=== PATIENT | female | born 1990 | race Caucasian/White ===

== ENCOUNTER → 2017-08-09 | Outpatient (CLI) | payer MEDICAID ==
--- NOTE | 2017-08-09 16:40 | RADIOLOGY REPORT (SQ) ---
EXAM DESCRIPTION: U/S [id number] TRNABD 1GES W/ODOP COMPLETED DATE/TIME: 08/09/2017 4:24 pm REASON FOR STUDY: ENCOUNTER FOR SUPERVISION OF OTHER NORMAL , FIRST TRIMESTER Z34.81 ENCOU NTER FOR SUPRVSN OF NORMAL , FIRST TRIM COMPARISON: None. TECHNIQUE: Transabdominal static and realtime grayscale images acquired of the pelvis. Additional se lected spectral and color Doppler images recorded. All images stored on PACs. bHCG: Not available LIMITATIONS: None. FINDINGS: FETUS: Living intrauterine . EGA: 12 weeks 1 day by crown-rump length SHOAIB: 02/20/2018 FHR: 175 beats per minute. SUBCHORIONIC BLEED: No SIZE OF BLEED: Not applicable. UTERUS: No masses. No anomalies. Uterus is 11.5 x 9 x 9 cm in size CERVICAL LENGTH: 3 cm inlet Closed. RIGHT ADNEXA: Normal ovary with normal vascular flow. Right ovary 3.8 x 2.6 x 1.9 cm size No adnexal free fluid. No adnexal masses. LEFT ADNEXA: Normal ovary with normal vascular flow. Left ovary 2.7 x 1.6 x 1.6 cm in size No adnexal free fluid. No adnexal masses. FREE FLUID: None. OTHER: No other significant finding. IMPRESSION: LIVING INTRAUTERINE . EGA 12 weeks 1 day by crown-rump length Trimester of : First - 0 to 13 weeks. TECHNICAL DOCUMENTATION: JOB ID: [id number] [employer]- All Rights Reserved
== END ==
LOC: RAD 15:55
PROVIDERS: ATTEND Nurse Practitioner Women's Health
DX: Z34.81 Encounter for supervision of other normal pregnancy, first trimester (principal)
CPT/HCPCS: 76801

== ENCOUNTER → 2017-08-14 | Outpatient (CLI) | payer MEDICAID ==
[2017-08-14 14:47] LABS: ALANINE AMINOTRANSFERASE 21 U/L (9-52); ALBUMIN 3.7 g/dL (3.5-5.0); ALKALINE PHOSPHATASE 44 U/L (38-126); ANION GAP 10 (5-19); ASPARTATE AMINO TRANSFERASE 14 U/L (14-36); BILIRUBIN,DIRECT 0.2 mg/dL (0.0-0.4); BILIRUBIN,TOTAL 0.3 mg/dL (0.2-1.3); BLOOD UREA NITROGEN 10 mg/dL (7-20); CALCIUM 9.8 mg/dL (8.4-10.2); CARBON DIOXIDE 26 mmol/L (22-30); CHLORIDE 104 mmol/L (98-107); GLUCOSE 80 mg/dL (75-110); POTASSIUM 4.4 mmol/L (3.6-5.0); SODIUM 139.7 mmol/L (137-145); TOTAL PROTEIN 6.4 g/dL (6.3-8.2); URIC ACID 3.3 mg/dL (2.5-6.2)
[2017-08-15 19:11] LABS: URINE PROTEIN 6.5 mg/dL (<12)
[2017-08-15 19:16] LABS: 24 HOUR URINE PROTEIN RESULT 66 mg/day (42-225)
== END ==
LOC: OD 13:34
PROVIDERS: ATTEND Nurse Practitioner Women's Health
DX: Z34.81 Encounter for supervision of other normal pregnancy, first trimester (principal)
CPT/HCPCS: 36415; 80053; 83615; 84156; 84550

== ENCOUNTER 2017-12-18 19:43 | Observation (INO) | payer MEDICAID ==
[2017-12-18 20:42] LABS: APPEARANCE,URINE CLOUDY; BILIRUBIN,URINE SMALL (NEGATIVE); COLOR,URINE AMBER; GLUCOSE, URINE NEGATIVE (NEGATIVE); KETONES,URINE 80 mg/dL (NEGATIVE); LEUKOCYTE ESTERASE,URINE LARGE (NEGATIVE); NITRITE,URINE NEGATIVE (NEGATIVE); PROTEIN,URINE 100 mg/dL (NEGATIVE); URINE SPECIFIC GRAVITY 1.036
[2017-12-18 20:56] LABS: URINE AMPHETAMINES SCREEN NEGATIVE; URINE BARBITURATES SCREEN NEGATIVE; URINE BENZODIAZEPINES SCREEN NEGATIVE; URINE COCAINE SCREEN NEGATIVE; URINE MARIJUANA (THC) SCREEN NEGATIVE; URINE METHADONE SCREEN NEGATIVE; URINE PHENCYCLIDINE SCREEN NEGATIVE
[2017-12-18] MEDS ORDERED: ONDANSETRON HCL INJ/PF 4 MG/2 ML SDV IV ONE (21:10)
[2017-12-18] MEDS ORDERED: ONDANSETRON HCL INJ/PF 4 MG/2 ML SDV ONE (21:13)
[2017-12-18 21:49] LABS: HEMATOCRIT 39.5 % (36.0-47.0); HEMOGLOBIN 13.4 g/dL (12.0-15.5); MEAN CORPUSCULAR HEMOGLOBIN 31.2 pg (27.0-33.4); MEAN CORPUSCULAR HGB CONC 33.9 g/dL (32.0-36.0); MEAN CORPUSCULAR VOLUME 92 fl (80-97); PLATELET COUNT 162 10^3/uL (150-450); RED BLOOD COUNT 4.29 10^6/uL (3.72-5.28); RED CELL DISTRIBUTION WIDTH 13.6 % (11.5-14.0)
[2017-12-18] MEDS ORDERED: RINGERS SOLUTION,LACTATED 1,000 ML IV ONE (21:55)
[2017-12-18 22:00] LABS: ALANINE AMINOTRANSFERASE 31 U/L (9-52); ALBUMIN 3.2 g/dL (3.5-5.0); ALKALINE PHOSPHATASE 93 U/L (38-126); AMYLASE 32 U/L (30-110); ANION GAP 11 (5-19); ASPARTATE AMINO TRANSFERASE 18 U/L (14-36); BILIRUBIN,DIRECT 0.2 mg/dL (0.0-0.4); BILIRUBIN,TOTAL 0.5 mg/dL (0.2-1.3); BLOOD UREA NITROGEN 11 mg/dL (7-20); CALCIUM 8.9 mg/dL (8.4-10.2); CARBON DIOXIDE 23 mmol/L (22-30); CHLORIDE 105 mmol/L (98-107); GLUCOSE 86 mg/dL (75-110); LIPASE 68.4 U/L (23-300); POTASSIUM 4.2 mmol/L (3.6-5.0); SODIUM 138.9 mmol/L (137-145); TOTAL PROTEIN 5.9 g/dL (6.3-8.2)
[2017-12-18 22:08] LABS: AMNISURE (ROM) NEGATIVE (NEGATIVE)
[2017-12-18 22:09] LABS: ABSOLUTE LYMPHOCYTES# (MANUAL) 0.8 10^3/uL (0.5-4.7); ABSOLUTE MONOCYTES # (MANUAL) 0.8 10^3/uL (0.1-1.4); ABSOLUTE NEUTROPHILS# (MANUAL) 13.4 10^3/uL (1.7-8.2); BASOPHILS % (MANUAL) 0 % (0-2); EOSINOPHILS % (MANUAL) 1 % (0-6); LYMPHOCYTES % (MANUAL) 5 % (13-45); MONOCYTES % (MANUAL) 5 % (3-13); SEGMENTED NEUTROPHILS % (MAN) 89 % (42-78); TOTAL CELLS COUNTED 100
[2017-12-18 22:13] LABS: PLATELET COMMENT ADEQUATE; TOXIC GRANULATION SLIGHT
[2017-12-18 22:56] LABS: T.VAGINALIS (WET MOUNT) NO TRICHOMONAS SEEN
[2017-12-18 22:57] LABS: BACTERIA (WET MOUNT) 4+ BACTERIA SEEN; EPITHELIALS (WET MOUNT) 3+ EPITHELIALS SEEN; WBCS (WET MOUNT) 3+ WBCS SEEN; YEAST (WET MOUNT) YEAST SEEN
[2017-12-18 23:00] LABS: APPEARANCE,URINE SLIGHTLY-CLOUDY; BILIRUBIN,URINE NEGATIVE (NEGATIVE); COLOR,URINE YELLOW; GLUCOSE, URINE NEGATIVE (NEGATIVE); KETONES,URINE 80 mg/dL (NEGATIVE); LEUKOCYTE ESTERASE,URINE SMALL (NEGATIVE); NITRITE,URINE NEGATIVE (NEGATIVE); PROTEIN,URINE NEGATIVE (NEGATIVE); URINE SPECIFIC GRAVITY 1.028
[2017-12-18] MEDS ORDERED: BETAMET ACET/BETAMET NA INJ 6 MG/1 ML ONE (23:43)
[2017-12-18] MEDS ORDERED: ZOLPIDEM TARTRATE 5 MG TABLET PO PRN (23:43)
--- NOTE | 2017-12-18 23:51 | RADIOLOGY REPORT (SQ) ---
EXAM DESCRIPTION: US LIMITED CLINICAL HISTORY: 27 years Female, cervical length, presentation Comparison: None. TECHNIQUE: Targeted for request obstetric parameters. LIMITATIONS: None. FINDINGS: Cervical length: 1.2 cm. Closed appearance with up to 20% funneling of the internal os. Funneling measures 1.5 cm in length and 1.1 cm in width. position: Vertex. JACQUES: 11.5 cm. Anechoic. Cardiac activity: 145 bpm Placenta location: Anterior. No evidence of placenta previa. No abruption. IMPRESSION: Targeted for requested obstetric parameters.
[2017-12-18] MEDS: RINGERS SOLUTION,LACTATED 1,000 ML IV PRN ×2 (23:55→23:56)
[2017-12-19 00:23] LABS: CHLAM PCR NOT DETECTED (NOT DETECT); GON PCR NOT DETECTED (NOT DETECT)
[2017-12-19] MEDS: RINGERS SOLUTION,LACTATED 1,000 ML IV PRN ×2 (03:20→11:46)
--- NOTE | 2017-12-19 04:48 | Admission Physical ---
Datetime Report Generated by CPN: 12/19/2017 04:48 CURRENT ADMISSION Chief Complaint: Other Chief Complaint Other: Labor check for n/v and suspected GI bug complaint of back pain and vague abd pain. Shortened cervical length Admit Impression : , Intrauterine ; No Active Labor; Intact Membranes; Observation/Evaluation Admit Plan: Admit to Unit; Observation/Evaluation ALLERGIES Medication Allergies: No Medication Allergies: No Known Allergies (12/18/2017) Latex: No Latex Allergies OBSTETRICAL HISTORY EDC: 02/20/2018 00:00 : 2 Para: 1 Term: 1 : 0 SAB: 0 IAB: 0 Ectopic: 0 Livin Cesareans: 0 VBACs: 0 Multiple Births: 0 Gestational Diabetes: No Rh Sensitization: No Incompetent Cervix: No DANNIE: No Infertility: No ART Treatment: No Uterine Anomaly: No IUGR: No Hx Previous C/S: No Macrosomia: No Hx Loss/Stillborn: No PIH: No Hx : No Placenta Previa/Abruption: No Depression/PP Depression: No PTL/PROM: No Post Hemorrhage: No Current Procedures: Ultrasound; NST Obstetrical History Comments: G1-11/02/10 @ 40wks Male 8lbs 6oz (Pre-eclampsia) G2- Current SEE RECORDS Alcohol: No Marijuana : No Cocaine: No Other Illicit Drugs: No Cigarettes: Former Smoker. [id number] MEDICAL HISTORY Diabetes: No Blood Transfusion: No Pulmonary Disease (Asthma, TB): No Breast Disease: No Hypertension: No Orthopedic Radiologic Technologist Surgery: No Heart Disease: No Hosp/Surgery: Yes Autoimmune Disorder: No Anesthetic Complications: No Kidney Disease: No Abnormal Pap Smear: No Neuro/Epilepsy: No Psychiatric Disorders: No Other Medical Diseases: Yes Hepatitis/Liver Disease: No Significant Family History: No Varicosities/Phlebitis: No Trauma/Violence : No Thyroid Dysfunction: No Medical History Comments: 2011-Childbirth; Has umbilical hernia; INFECTIOUS HISTORY Gonorrhea: No Genital Herpes: No Chlamydia: No Tuberculosis: No Syphilis: No Hepatitis: No HIV/AIDS Exposure: No Rash or Viral Illness: No HPV: Yes Infectious History Comments: Genital warts tx during @ [facility]; PHYSICAL EXAM General: Normal HEENT: Normal Neurologic: Normal Thyroid: Deferred Heart: Normal Lungs: Normal Breast: Deferred Back: Normal Abdomen: Normal Genitourinary Exam: Normal Extremities: Normal DTRs: Normal Pelvic Type: Adequate Vital Signs: Reviewed VAGINAL EXAM Contraction Comments: rare MEMBRANES Membranes: Intact FETUS A EGA: 31.0 Monitoring: External US FHR- Baseline: 150 Variability: Moderate 6-25bpm Accelerations: 15X15 Decelerations: None FHR Category: Category I Presentation: Vertex Admit Comment: 27yo at 31+0ega admitted just prior to midnight last evening for observation due to shortened cervical length. Patient reports that now she is feeling better n/v has resolved and back pain (low mid back pain) has improved slightly. Cervical length done in the office yesterday due to c/o ctx day prior (12/16) and cervical length on 12/17 was 3.67cm. Prior delivery was at 40wks. GBS unknown. Will give steroids. Unable to do fFN last night due to prior exam on Sunday. Cervix now 1.2cm shortened with funneling but closed. Pt resting comfortably. Will give prometrium/zantac/monsitat at discharge. c/b genital warts and h/o preE in prior preg/Varicella NI. If patient begins ctx again then will give Mag for neuroprotection, PCN for GBS prophy. For now BMZ only. Anticipate discharge tomorrow when steroid complete if she continues to do well. INFORMED CONSENT Informed Consent Obtained: Vaginal Delivery; Risks, Benefits and Alternatives Discussed Signature: with User ID: [email or web address]
[2017-12-19] MEDS ORDERED: FAMOTIDINE 20 MG TABLET PO SCH (10:00)
[2017-12-19] MEDS ORDERED: BETAMET ACET/BETAMET NA INJ 6 MG/1 ML IM SCH (10:00)
[2017-12-19] MEDS ORDERED: FAMOTIDINE 20 MG TABLET ONE (10:11)
[2017-12-19] MEDS ORDERED: BETAMET ACET/BETAMET NA INJ 6 MG/1 ML ONE (23:23)
== END 2017-12-19 23:50 | disposition home or self-care (01) ==
LOC: LC 19:43 → LR 23:41 → INTOOBSV 23:41
PROVIDERS: ADMIT Student in an Organized Health Care Education/Training Program; ATTEND Student in an Organized Health Care Education/Training Program
PROC: 4A1HXCZ Monitoring of Products of Conception, Cardiac Rate, External Approach (ICD-10-PCS; principal; 2017-12-18)
DX: O47.03 False labor before 37 completed weeks of gestation, third trimester (principal); R11.2 Nausea with vomiting, unspecified; O26.873 Cervical shortening, third trimester; M54.5 Low back pain; O98.313 Other infections with a predominantly sexual mode of transmission complicating pregnancy, third trimester; A63.0 Anogenital (venereal) warts; R10.9 Unspecified abdominal pain; K42.9 Umbilical hernia without obstruction or gangrene; Z3A.31 31 weeks gestation of pregnancy; Z87.891 Personal history of nicotine dependence; Z87.59 Personal history of other complications of pregnancy, childbirth and the puerperium
CPT/HCPCS: 59025; 96372 ×2; 84112; 36415; 87086; 87210; 82150; 83690; 85025; 80053; 81001; 80307; 87491; 87591; 76815; G0378 ×2; Q0114; J3490; J0702 ×2; J2405

== ENCOUNTER 2018-02-14 17:34 | Inpatient (IN) | payer MEDICAID ==
[2018-02-14 18:31] LABS: APPEARANCE,URINE CLOUDY; BILIRUBIN,URINE NEGATIVE (NEGATIVE); COLOR,URINE YELLOW; GLUCOSE, URINE NEGATIVE (NEGATIVE); KETONES,URINE NEGATIVE (NEGATIVE); LEUKOCYTE ESTERASE,URINE LARGE (NEGATIVE); NITRITE,URINE NEGATIVE (NEGATIVE); PROTEIN,URINE NEGATIVE (NEGATIVE); URINE SPECIFIC GRAVITY 1.012; UROBILINOGEN,URINE NEGATIVE mg/dL (<2.0)
[2018-02-14 18:53] LABS: URINE AMPHETAMINES SCREEN NEGATIVE; URINE BARBITURATES SCREEN NEGATIVE; URINE BENZODIAZEPINES SCREEN NEGATIVE; URINE COCAINE SCREEN NEGATIVE; URINE MARIJUANA (THC) SCREEN NEGATIVE; URINE METHADONE SCREEN NEGATIVE; URINE PHENCYCLIDINE SCREEN NEGATIVE
[2018-02-14] MEDS ORDERED: RINGERS SOLUTION,LACTATED 1,000 ML IV PRN (19:15)
[2018-02-14] MEDS ORDERED: RINGERS SOLUTION,LACTATED 300 ML IV ONE (19:15)
[2018-02-14] MEDS ORDERED: OXYTOCIN/NORMAL SALINE 20 UNIT/1,000 ML RTUINJ IV PRN ×2 (19:15→21:38)
[2018-02-14] MEDS ORDERED: OXYTOCIN/NORMAL SALINE 20 UNIT/1,000 ML RTUINJ ONE (19:34)
[2018-02-14] MEDS ORDERED: LIDOCAINE 1% INJ-PF (10 MG/ML) 30 ML SDV ONE (19:34)
[2018-02-14] MEDS ORDERED: MISOPROSTOL 0.2 MG TABLET ONE (19:34)
[2018-02-14 19:41] LABS: ABSOLUTE BASOPHILS # (AUTO) 0.1 10^3/uL (0.0-0.2); ABSOLUTE EOSINOPHILS # (AUTO) 0.1 10^3/uL (0.0-0.6); ABSOLUTE LYMPHOCYTES (AUTO) 1.4 10^3/uL (0.5-4.7); ABSOLUTE MONOCYTES (AUTO) 0.7 10^3/uL (0.1-1.4); ABSOLUTE NEUT (AUTO) 9.7 10^3/uL (1.7-8.2); BASOPHILS % (AUTO) 0.8 % (0-2); EOSINOPHILS % (AUTO) 0.5 % (0-6); HEMATOCRIT 37.4 % (36.0-47.0); HEMOGLOBIN 13.1 g/dL (12.0-15.5); LYMPHOCYTES % (AUTO) 11.3 % (13-45); MEAN CORPUSCULAR HEMOGLOBIN 31.8 pg (27.0-33.4); MEAN CORPUSCULAR HGB CONC 35.1 g/dL (32.0-36.0); MEAN CORPUSCULAR VOLUME 91 fl (80-97); MONOCYTES % (AUTO) 6.1 % (3-13); PLATELET COUNT 166 10^3/uL (150-450); RED BLOOD COUNT 4.12 10^6/uL (3.72-5.28); RED CELL DISTRIBUTION WIDTH 13.6 % (11.5-14.0); SEGMENTED NEUTROPHILS % (AUTO) 81.3 % (42-78); TOTAL CELLS COUNTED % (AUTO) 100 %
--- NOTE | 2018-02-14 20:12 | Admission Physical ---
Datetime Report Generated by CPN: 02/14/2018 20:11 CURRENT ADMISSION Chief Complaint: Uterine Contractions Chief Complaint Other: Labor check for n/v and suspected GI bug complaint of back pain and vague abd pain. Shortened cervical length Indication for Induction: Not Applicable Admit Impression : Term, Intrauterine Admit Plan: Initiate Labor Protocol ALLERGIES Medication Allergies: No Medication Allergies: No Known Allergies (12/18/2017) Latex: No Latex Allergies Food Allergies: N/A Environmental Allergies: N/A OBSTETRICAL HISTORY EDC: 02/20/2018 00:00 : 2 Para: 1 Term: 1 : 0 SAB: 0 IAB: 0 Ectopic: 0 Livin Cesareans: 0 VBACs: 0 Multiple Births: 0 Gestational Diabetes: No Rh Sensitization: No Incompetent Cervix: No DANNIE: No Infertility: No ART Treatment: No Uterine Anomaly: No IUGR: No Hx Previous C/S: No Macrosomia: No Hx Loss/Stillborn: No PIH: No Hx : No Placenta Previa/Abruption: No Depression/PP Depression: No PTL/PROM: No Post Hemorrhage: No Current Procedures: Ultrasound; NST Obstetrical History Comments: G1-11/02/10 @ 40wks Male 8lbs 6oz (Pre-eclampsia) G2- Current SEE RECORDS Alcohol: No Marijuana : No Cocaine: No Other Illicit Drugs: No Cigarettes: Former Smoker. [id number] MEDICAL HISTORY Diabetes: No Blood Transfusion: No Pulmonary Disease (Asthma, TB): No Breast Disease: No Hypertension: No Orthoptist Surgery: No Heart Disease: No Hosp/Surgery: Yes Autoimmune Disorder: No Anesthetic Complications: No Kidney Disease: No Abnormal Pap Smear: No Neuro/Epilepsy: No Psychiatric Disorders: No Other Medical Diseases: Yes Hepatitis/Liver Disease: No Significant Family History: No Varicosities/Phlebitis: No Trauma/Violence : No Thyroid Dysfunction: No Medical History Comments: 2011-Childbirth; Has umbilical hernia; INFECTIOUS HISTORY Gonorrhea: No Genital Herpes: No Chlamydia: No Tuberculosis: No Syphilis: No Hepatitis: No HIV/AIDS Exposure: No Rash or Viral Illness: No HPV: Yes Infectious History Comments: Genital warts tx during @ health department; PHYSICAL EXAM General: Normal HEENT: Normal Neurologic: Normal Thyroid: Normal Heart: Normal Lungs: Normal Breast: Deferred Back: Normal Abdomen: Normal Genitourinary Exam: Normal Extremities: Normal DTRs: Normal Pelvic Type: Adequate Vital Signs: Reviewed VAGINAL EXAM Dilatation: 5 Effacement: 80 Contraction Comments: rare MEMBRANES Membranes: Ruptured FETUS A EGA: 39.1 Monitoring: External US FHR- Baseline: 150 Variability: Moderate 6-25bpm Accelerations: 15X15 Decelerations: None FHR Category: Category I Presentation: Vertex Admit Comment: 27yo at 31+0ega admitted just prior to midnight last evening for observation due to shortened cervical length. Patient reports that now she is feeling better n/v has resolved and back pain (low mid back pain) has improved slightly. Cervical length done in the office yesterday due to c/o ctx day prior (12/16) and cervical length on 12/17 was 3.67cm. Prior delivery was at 40wks. GBS unknown. Will give steroids. Unable to do fFN last night due to prior exam on Sunday. Cervix now 1.2cm shortened with funneling but closed. Pt resting comfortably. Will give prometrium/zantac/monsitat at discharge. c/b genital warts and h/o preE in prior preg/Varicella NI. If patient begins ctx again then will give Mag for neuroprotection, PCN for GBS prophy. For now BMZ only. Anticipate discharge tomorrow when steroid complete if she continues to do well. PLANS FOR LABOR AND DELIVERY Labor and Delivery: None Pain Management: Natural Feeding Preference: Breast Benefit of Breast Feed Discussed: Yes Circumcision: Yes INFORMED CONSENT Informed Consent Obtained: Vaginal Delivery; Risks, Benefits and Alternatives Discussed Signature: with User ID: [email or web address]
[2018-02-14] MEDS ORDERED: BUPIVACAINE HCL 0.25 % INJ/PF (2.5 MG/1 ML) 30 ML VIAL ONE (20:38)
[2018-02-14] MEDS ORDERED: EPHEDRINE SULFATE INJ 50 MG/1 ML AMPULE ONE (20:38)
[2018-02-14] MEDS ORDERED: FENTANYL/BUPIVACAINE/NS/PF 0 MCG/0 ML RTUINJ EPI ONE (20:38)
[2018-02-14] MEDS ORDERED: ZOLPIDEM TARTRATE 5 MG TABLET PO PRN (21:38)
[2018-02-14] MEDS ORDERED: PROMETHAZINE HCL 25 MG SUPP.RECT PR PRN (21:38)
[2018-02-14] MEDS ORDERED: DIPHENHYDRAMINE HCL 25 MG CAPSULE PO PRN (21:38)
[2018-02-14] MEDS ORDERED: MAGNESIUM HYDROXIDE SUSP 30 ML UDCUP PO PRN (21:38)
[2018-02-14] MEDS ORDERED: PROMETHAZINE HCL 25 MG TABLET PO PRN (21:38)
[2018-02-14] MEDS ORDERED: ACETAMINOPHEN 650 MG SUPP.RECT PR PRN (21:38)
[2018-02-14] MEDS ORDERED: PSEUDOEPHEDRINE HCL 30 MG TABLET PO PRN (21:38)
[2018-02-14] MEDS ORDERED: GLYCERIN/WITCH HAZEL LEAF 1 EACH MED..PAD TP PRN (21:38)
[2018-02-14] MEDS ORDERED: NA PHOS,M-B/NA PHOS,DI-BA (ADULT) 133 ML ENEMA PR PRN (21:38)
[2018-02-14] MEDS ORDERED: DIPH/PERTUSS(ACELL)/TETANUS VAC/PF 0.5 ML SYR (>=10YO) IM PRN (21:38)
[2018-02-14] MEDS ORDERED: BENZOCAINE/MENTHOL AEROSOL SPRAY 56 ML TOP PRN (21:38)
[2018-02-14] MEDS ORDERED: DIBUCAINE 1% OINTMENT 28 GM TP PRN (21:38)
[2018-02-14] MEDS ORDERED: ACETAMINOPHEN WITH CODEINE #3 TABLET PO PRN (21:38)
[2018-02-14] MEDS ORDERED: PROMETHAZINE HCL INJ 25 MG/1 ML VIAL IV PRN (21:38)
[2018-02-14] MEDS ORDERED: MEASLES,MUMPS&RUBELLA VACC/PF 0.5 ML VIAL SUBCUT PRN (21:38)
--- NOTE | 2018-02-14 21:38 | PDOC DELIVERY SUMMARY ---
Delivery Summary - Maternal Ruptured Membranes: AROM Fluids: Clear - Delivery Presentation: Vertex Uterine Contraction Monitoring: External Support Person Present: Yes Placenta: Within Normal Limits Nuchal Cord: No
[2018-02-14] MEDS ORDERED: IBUPROFEN 800 MG TABLET ONE (22:34)
[2018-02-14] MEDS: IBUPROFEN 800 MG TABLET PO SCH (22:35)
--- NOTE | 2018-02-14 23:27 | Delivery Summary ---
Del Sum A-C Datetime Report Generated by CPN: 02/14/2018 23:27 DELIVERY PERSONNEL DELIVERY PERSONNEL: [id number] Delivery Doctor:: Alexandru Joshi MD Labor and Delivery Nurse:: Deepthi Richardson RNhomicide squad commanding officer Nurse:: Jackelin Huerta RN Student Observers:: Graciela Matt CNA(student) Additional Personnel: : Gema Sanchez RN MATERNAL INFORMATION Delivery Anesthesia: None Medications After Delivery: Pitocin Drip 20 Units/1000ml NSS Maternal Complications: None LABOR SUMMARY EDC: 02/20/2018 00:00 No. Babies in Womb: 1 Attempted: No Labor Anesthesia: None LABOR INFORMATION Reason for Induction: Not Applicable Onset of Labor: 02/14/2018 20:08 Complete Dilatation: 02/14/2018 21:14 Oxytocin: N/A Group B Beta Strep: Negative Antibiotics # of Doses: 0 Antibiotics Time of Last Dose: N/A Name of Antibiotic Given: N/A Steroids Given: Full Course Reason Steroids Not Administered: Not Applicable MEMBRANES Membranes Rupture Method: Artificial Rupture of Membranes: 02/14/2018 20:08 Length of Rupture (hr): 1.32 Amniotic Fluid Color: Bloody Amniotic Fluid Amount: Moderate Amniotic Fluid Odor: Normal STAGES OF LABOR Stage 1 hr: 1 Stage 1 min: 6 Stage 2 hr: 0 Stage 2 min: 13 Stage 3 hr: 0 Stage 3 min: 4 Total Time in Labor hr: 1 Total Time in Labor min: 23 VAGINAL DELIVERY Episiotomy: None Laceration #1: Vaginal Laceration Extension #1: First Degree Laceration Repair: No Laceration Repair Note: no repair needed Sponge Count Correct: N/A Sharps Count Correct: Yes CSECTION DELIVERY Primary Indication: N/A Secondary Indication: N/A CSection Incidence: N/A Labor: N/A Elective: N/A CSection Incision: N/A BABY A INFORMATION Delivery Date/Time: 02/14/2018 21:27 Method of Delivery: Vaginal Born in Route : No : N/A Forceps: N/A Vacuum Extraction: N/A Shoulder Dystocia : No PRESENTATION/POSITION BABY A Presentation: Cephalic Cephalic Presentation: Vertex Vertex Position: Right Occipital Anterior Breech Presentation: N/A PLACENTA INFORMATION BABY A Placenta Delivery Time : 02/14/2018 21:31 Placenta Method of Delivery: Spontaneous Placenta Status: Delivered SCORES BABY A Heart Rate 1 min: >100 bpm Resp Effort 1 min: Good Cry Reflex Irritability 1 min: Cough or Sneeze or Pulls Away Muscle Tone 1 min: Active Motion Color 1 min: Blue/Pale Resuscitation Effort 1 min: Tactile Stimulation SCORE 1 MIN: 8 Heart Rate 5 min: >100 bpm Resp Effort 5 min: Good Cry Reflex Irritability 5 min: Cough or Sneeze or Pulls Away Muscle Tone 5 min: Active Motion Color 5 min: Body [place], Extremities Blue Resuscitation Effort 5 min: N/A SCORE 5 MIN: 9 INFORMATION BABY A Gestational Age at Delivery: 39.1 Gestational Status: Full Term- 39- 40.6 Weeks Outcome : Liveborn Infant Condition : Stable Infant Sex: Male IDENTIFICATION BABY A Verification Date/Time: 02/14/2018 21:41 ID Band Number: [id number] Mother's Name Verified: Yes RN Verifying : B Baidy RN/ D Kenia US WEIGHT/LENGTH BABY A Infant Birthweight (gm): 3400 Weight (lb): 7 Infant Weight (oz): 8 Length (in): 20.00 Infant Length (cm): 50.80 CORD INFORMATION BABY A No. Cord Vessels: 3 Nuchal Cord : N/A Cord Blood Taken: Yes-For Storage (Mom's Blood type +) Infant Suction: Mouth; Nose ASSESSMENT BABY A Infant Complications: None Physical Findings at Delivery: Within Normal Limits Respirations: Appears Normal Skin to Skin: Yes Building Equipment Inspector/ALS Called : No Infant Care By: T Gentilin RN Transferred To: Remains with Mother BABY B INFORMATION : N/A SIGNATURES Signature: with User ID: [email or web address]
[2018-02-14] MEDS: FAMOTIDINE 20 MG TABLET PO SCH (23:59)
[2018-02-15] MEDS: IBUPROFEN 800 MG TABLET PO SCH ×3 (06:16→22:19)
[2018-02-15 08:05] LABS: HEMATOCRIT 31.9 % (36.0-47.0); HEMOGLOBIN 11.1 g/dL (12.0-15.5); MEAN CORPUSCULAR HEMOGLOBIN 31.7 pg (27.0-33.4); MEAN CORPUSCULAR HGB CONC 34.7 g/dL (32.0-36.0); MEAN CORPUSCULAR VOLUME 91 fl (80-97); PLATELET COUNT 157 10^3/uL (150-450); RED BLOOD COUNT 3.49 10^6/uL (3.72-5.28); RED CELL DISTRIBUTION WIDTH 13.5 % (11.5-14.0); WHITE BLOOD COUNT 14.7 10^3/uL (4.0-10.5)
[2018-02-15] MEDS: SENNOSIDES/DOCUSATE 8.6-50 MG 1 EACH TABLET PO SCH (10:22)
[2018-02-15] MEDS: DOCUSATE SODIUM 100 MG CAPSULE PO SCH ×2 (10:22→17:26)
[2018-02-15] MEDS: PRENATAL VITAMIN W DHA CAPSULE PO SCH (10:22)
[2018-02-15] MEDS: FAMOTIDINE 20 MG TABLET PO SCH ×2 (10:23→22:19)
[2018-02-15] MEDS: FERROUS SULFATE 325 MG TABLET PO SCH ×2 (10:23→17:26)
--- NOTE | 2018-02-15 10:57 | PDOC PROGRESS REPORT ---
Subjective-OB Progress Note for:: 02/15/18 Physical Exam (OB) Vital Signs: Temp Pulse Resp BP Pulse Ox 98.2 F 83 16 110/69 98 02/15/18 08:35 02/15/18 08:35 02/15/18 08:35 02/15/18 08:35 02/15/18 08:35 Intake & Output 02/14/18 02/15/18 02/16/18 06:59 06:59 06:59 Weight 118 kg - PIH/Pre-Eclampsia DTR's: 2 + Clonus: Negative Headache: Absent Epigastric Pain: No Visual Changes: No - Lochia Lochia Amount: Small 10-25 ml Lochia Color: Rubra/Red - Abdomen Description: Tender, Soft Hernia Present: No Bowel Sounds: Normoactive Flatus Presence: Present Stool: No Fundal Description: Firm, Midline Fundal Height: u/u - u/2 Objective-Diagnostic Laboratory: 02/15/18 07:28 02/14/18 02/14/18 02/14/18 17:50 19:26 19:26 WBC 12.0 H RBC 4.12 Hgb 13.1 Hct 37.4 MCV 91 MCH 31.8 MCHC 35.1 RDW 13.6 Plt Count 166 Seg Neutrophils % 81.3 H Lymphocytes % 11.3 L Monocytes % 6.1 Eosinophils % 0.5 Basophils % 0.8 Absolute Neutrophils 9.7 H Absolute Lymphocytes 1.4 Absolute Monocytes 0.7 Absolute Eosinophils 0.1 Absolute Basophils 0.1 Urine Color YELLOW Urine Appearance CLOUDY Urine pH 5.0 Ur Specific [place] 1.012 Urine Protein NEGATIVE Urine Glucose (UA) NEGATIVE Urine Ketones NEGATIVE Urine Blood LARGE H Urine Nitrite NEGATIVE Ur Leukocyte Esterase LARGE H Blood Type B POSITIVE Antibody Screen NEGATIVE 02/15/18 07:28 WBC 14.7 H RBC 3.49 L Hgb 11.1 L Hct 31.9 L MCV 91 MCH 31.7 MCHC 34.7 RDW 13.5 Plt Count 157 Seg Neutrophils % Lymphocytes % Monocytes % Eosinophils % Basophils % Absolute Neutrophils Absolute Lymphocytes Absolute Monocytes Absolute Eosinophils Absolute Basophils Urine Color Urine Appearance Urine pH Ur Specific [place] Urine Protein Urine Glucose (UA) Urine Ketones Urine Blood Urine Nitrite Ur Leukocyte Esterase Blood Type Antibody Screen
[2018-02-16] MEDS: IBUPROFEN 800 MG TABLET PO SCH (06:10)
[2018-02-16] MEDS: SENNOSIDES/DOCUSATE 8.6-50 MG 1 EACH TABLET PO SCH (09:20)
[2018-02-16] MEDS: DOCUSATE SODIUM 100 MG CAPSULE PO SCH (09:21)
[2018-02-16] MEDS: FERROUS SULFATE 325 MG TABLET PO SCH (09:21)
[2018-02-16] MEDS: PRENATAL VITAMIN W DHA CAPSULE PO SCH (09:22)
[2018-02-16 09:46] VITALS: BP 102/67
[2018-02-16] MEDS: FAMOTIDINE 20 MG TABLET PO SCH (10:07)
--- NOTE | 2018-02-16 13:08 | PDOC PROGRESS REPORT ---
Subjective-OB Progress Note for:: 02/16/18 Subjective: Ready to go home. Physical Exam (OB) Vital Signs: Temp Pulse Resp BP Pulse Ox 98.4 F 87 18 102/67 97 02/16/18 11:53 02/16/18 11:53 02/16/18 11:53 02/16/18 07:34 02/16/18 11:53 Intake & Output 02/15/18 02/16/18 02/17/18 06:59 06:59 06:59 Weight 118 kg - PIH/Pre-Eclampsia DTR's: 2 + Clonus: Negative Headache: Absent Epigastric Pain: No Visual Changes: No - Lochia Lochia Amount: Small 10-25 ml Lochia Color: Rubra/Red - Abdomen Description: Tender, Soft Hernia Present: Yes Bowel Sounds: Normoactive Flatus Presence: Present Stool: No Fundal Description: Firm, Midline Fundal Height: u/u - u/2 Objective-Diagnostic Laboratory: 02/15/18 07:28
--- NOTE | 2018-02-16 13:13 | PDOC DISCHARGE SUMMARY ---
Final Diagnosis Discharge Date: 02/16/18 - Final Diagnosis (1) Delivery normal Is this a current diagnosis for this admission?: Yes (2) Is this a current diagnosis for this admission?: Yes (3) Umbilical hernia Is this a current diagnosis for this admission?: Yes (4) Cervical shortening affecting in third trimester Is this a current diagnosis for this admission?: Yes Discharge Data - Discharge Medication Home Medications: Vit/Iron Fum/Folic AC [ Tablet] 1 each PO DAILY 12/19/17 Gestational Age: 39.1 wks Reason(s) for Admission: Onset of Labor Intrapartum Procedure(s): Spontaneous Vaginal Delivery - [place] Data Baby 1 Male at 1 minute: 8 at 5 minutes: 9 Weight: 3.402 kg Home with Mother: Yes Complications: No - Diagnosis Test Laboratory: Temp Pulse Resp BP Pulse Ox 98.4 F 87 18 102/67 97 02/16/18 11:53 02/16/18 11:53 02/16/18 11:53 02/16/18 07:34 02/16/18 11:53 02/14/18 02/14/18 02/15/18 17:50 19:26 07:28 RBC 4.12 3.49 L Hgb 13.1 11.1 L Hct 37.4 31.9 L Urine Opiates Screen NEGATIVE - Discharge information/Instructions Discharge Activity: Activity As Tolerated, Balance Activity w/Rest, Pelvic Rest , Slowly Increase Activity, No tub bath Discharge Diet: Regular Disposition: HOME, SELF-CARE Follow up with: [facility] in: 4, Weeks
== END 2018-02-16 14:18 | disposition home or self-care (01) | DRG 775 ==
LOC: LC 17:34 → LR 18:56 → 2S 23:44
PROVIDERS: ADMIT Obstetrics & Gynecology Gynecology; ATTEND Obstetrics & Gynecology Gynecology
PROC: 10E0XZZ Delivery of Products of Conception, External Approach (ICD-10-PCS; principal; 2018-02-14)
PROC: 10907ZC Drainage of Amniotic Fluid, Therapeutic from Products of Conception, Via Natural or Artificial Opening (ICD-10-PCS; 2018-02-14)
PROC: 4A1HXCZ Monitoring of Products of Conception, Cardiac Rate, External Approach (ICD-10-PCS; 2018-02-14)
PROC: 3E0234Z Introduction of Serum, Toxoid and Vaccine into Muscle, Percutaneous Approach (ICD-10-PCS; 2018-02-16)
DX: O26.873 Cervical shortening, third trimester (principal); K42.9 Umbilical hernia without obstruction or gangrene; O26.893 Other specified pregnancy related conditions, third trimester; Z87.891 Personal history of nicotine dependence; Z23 Encounter for immunization; Z3A.39 39 weeks gestation of pregnancy; Z37.0 Single live birth
CPT/HCPCS: 36415; 80307; 81005; 85025; 85027; 86592; 86850; 86900; 86901; 90715; J2590; J3010; J3490

== ENCOUNTER 2020-01-26 16:35 | Emergency (ER) | payer SELFPAY ==
--- NOTE | 2020-01-26 20:51 | RADIOLOGY REPORT (SQ) ---
EXAM DESCRIPTION: XR CHEST 1 VIEW COMPLETED DATE/TME: 01/26/2020 20:19 CLINICAL HISTORY: 29 years, Female, cough COMPARISON: None. NUMBER OF VIEWS: One TECHNIQUE: Single frontal view of the chest was obtained portably LIMITATIONS: None. FINDINGS: Cardiac and mediastinal contours are normal. Lungs are clear. No pleural effusion or pneumothorax. IMPRESSION: No acute disease. copyright 2010 [employer]- All Rights Reserved
--- NOTE | 2020-01-26 21:06 | ER Document Report ---
ED General - General Chief Complaint: Cough Stated Complaint: COUGH Time Seen by Provider: 01/26/20 20:06 Mode of Arrival: Ambulatory Information source: Patient TRAVEL OUTSIDE OF THE [place] IN LAST 30 DAYS: No - HPI Notes: Patient presents with cough for 1 week. She states that it is not unusual for her to have a cough however seems to be worse this week. She states it is dry and essentially nonproductive. No fever sweats or chills. She states she is concerned about possibly having contracted COVID since she works with the public at a [employer]. No rashes or fevers. Her cough is been mild to moderate. Is been intermittent. Nothing makes it better or worse. Obviously no radiation of the symptoms. - Related Data Allergies/Adverse Reactions: No Known Allergies Allergy (Verified 12/18/17 20:12) Past Medical History - General Information source: Patient - Social History Smoking Status: Never Smoker Frequency of alcohol use: None Drug Abuse: None Family History: Reviewed & Not Pertinent Patient has homicidal ideation: No - Immunizations Hx Diphtheria, Pertussis, Tetanus Vaccination: Yes Review of Systems - Review of Systems Constitutional: denies: Chills, Fever Cardiovascular: denies: Chest pain, Palpitations Respiratory: Cough. denies: Short of breath -: Yes All other systems reviewed and negative Physical Exam - Vital signs Vitals: Temp Pulse Resp BP Pulse Ox 98.7 F 81 17 137/96 H 100 01/26/20 19:15 01/26/20 19:15 01/26/20 19:15 01/26/20 19:15 01/26/20 19:15 Interpretation: Normal - General General appearance: Appears well, Alert - HEENT Head: Normocephalic, Atraumatic Eyes: Normal Pupils: PERRL - Respiratory Respiratory status: No respiratory distress Chest status: Nontender Breath sounds: Normal Chest palpation: Normal - Cardiovascular Rhythm: Regular Heart sounds: Normal auscultation Murmur: No - Abdominal Inspection: Normal Distension: No distension Bowel sounds: Normal Tenderness: Nontender Organomegaly: No organomegaly - Back Back: Normal, Nontender - Extremities General upper extremity: Normal inspection, Nontender, Normal color, Normal ROM, Normal temperature General lower extremity: Normal inspection, Nontender, Normal color, Normal ROM, Normal temperature, Normal weight bearing. No: Marcelo's sign - Neurological Neuro grossly intact: Yes Cognition: Normal Orientation: AAOx4 Brijesh Coma Scale Eye Opening: Spontaneous Brijesh Coma Scale Verbal: Oriented [place] Coma Scale Motor: Obeys Commands [place] Coma Scale Total: 15 Speech: Normal Motor strength normal: LUE, RUE, LLE, RLE Sensory: Normal - Psychological Associated symptoms: Normal affect, Normal mood - Skin Skin Temperature: Warm Skin Moisture: Dry Skin Color: Normal Course - Vital Signs Vital signs: Temp Pulse Resp BP Pulse Ox 98.4 F 81 17 137/96 H 100 01/26/20 19:19 01/26/20 19:15 01/26/20 19:15 01/26/20 19:15 01/26/20 19:15 - Diagnostic Test Radiology reviewed: Image reviewed, Reports reviewed Discharge - Discharge Clinical Impression: Viral syndrome Condition: Stable Disposition: HOME, SELF-CARE Instructions: Viral Syndrome ([facility]) Additional Instructions: Please quarantine yourself until your COVID tests results have returned Forms: Return to Work Referrals: [facility] [Provider Group] - Follow up in 3-5 days
[2020-01-26 21:54] VITALS: BP 127/87
== END 2020-01-26 21:54 | disposition home or self-care (01) ==
LOC: ER 16:35
DX: B34.9 Viral infection, unspecified (principal); R05 Cough; Z20.828 Contact with and (suspected) exposure to other viral communicable diseases
CPT/HCPCS: 99283; 87635; 71045; C9803